=== PATIENT | male | born 1995 | race Caucasian/White ===

== ENCOUNTER 2019-08-03 13:57 | Emergency (ER) | payer SELFPAY ==
[~2019-08-03] VITALS: Ht 170.2 cm; Wt 90.7 kg
[~2019-08-03 13:57] MED LIST: DIVA500T9 PO
[2019-08-03 14:13] VITALS: BP 132/81
--- NOTE | 2019-08-03 14:28 | NUR ---
23 Y/O M C/C PENILE DISCHARGE X1 DAY. PER PT PAINFUL 01/07; BLEEDING WHEN URINATING. DISCHARGE COLOR GREENISH PER PT. SEXUAL INTERCOUSE WITH ANOTHER PARTNER Saturday, NO PROTECTION USED. PT NKA. NO HX. NO RX. NO N/V/D.
[2019-08-03] MEDS ORDERED: cefTRIAXone 500 MG in LIDOCAINE MPF 1% 1 ML IM ONE (15:30)
[2019-08-03] MEDS ORDERED: AZITHROMYCIN 250 MG TAB PO ONE (15:30)
[2019-08-03] MEDS ORDERED: cefTRIAXone 500 MG VIAL ONE (15:33)
[2019-08-03] MEDS ORDERED: LIDOCAINE MPF 1% 5 ML ONE (15:34)
[2019-08-03 15:45] VITALS: BP 132/81
--- NOTE | 2019-08-03 15:45 | NUR ---
Patient discharged with v/s stable. Written and verbal after care instructions given and explained. Patient verbalized understanding. Ambulatory with steady gait. All questions addressed prior to discharge. Advised to follow up with PMD.
== END 2019-08-03 15:45 | disposition home or self-care (01) ==
LOC: MED 13:57
DX: R36.9 Urethral discharge, unspecified (principal); R30.0 Dysuria; Z20.2 Contact with and (suspected) exposure to infections with a predominantly sexual mode of transmission; Z79.899 Other long term (current) drug therapy
CPT/HCPCS: 36415; 81002; 96372; 99283; J0696; J2001